=== PATIENT | male | born 1995 | race Two or more races ===

== ENCOUNTER 2021-02-05 00:10 | Emergency (ER) | payer OTHER ==
[~2021-02-05] VITALS: Ht 170.2 cm; Wt 85.3 kg
[2021-02-05] MEDS ORDERED: ZITHROMAX500 MG PO (12:45)
[2021-02-05] MEDS ORDERED: INTESTINEX680 M1 PO (12:45)
[2021-02-05] MEDS ORDERED: MONODOX100 MG PO (12:45)
== END 2021-02-05 13:33 | disposition home or self-care (01) ==
LOC: ER 00:10
DX: N50.812 Left testicular pain (principal); N39.0 Urinary tract infection, site not specified; D72.829 Elevated white blood cell count, unspecified